=== PATIENT | female | born 1950 | race Caucasian/White ===

== ENCOUNTER 2021-09-26 08:56 | Day surgery (SDC) | payer MEDICARE, SELFPAY ==
[2021-09-26] VITALS (7 sets, daily range): BP systolic 172–190; BP diastolic 91–105; PULSE 67–77; RESP 16–18; TEMP 36.2–36.3; O2SAT 93–97; BMI 34.2
--- NOTE | 2021-09-26 09:07 | EKG12_ITS ---
Test Reason : PRE OP Blood Pressure : / mmHG Vent. Rate : 078 BPM Atrial Rate : 078 BPM P-R Int : 168 ms QRS Dur : 112 ms QT Int : 378 ms P-R-T Axes : 036 -08 005 degrees QTc Int : 430 ms Normal sinus rhythm Nonspecific T wave abnormality Poor R wave progression Abnormal ECG Confirmed by MANUEL WELSH, BARRY ([id number]), editor newspaper CARLOS JOLLEY ([id number]) on 10/13/2021 8:36:19 AM Referred By: MARGARITO Confirmed By:BARRY JACKSON MD
--- NOTE | 2021-09-26 09:33 | PCM.HP.STD ---
HPI - General HPI Narrative JAJA GARCIA, is a 71 F who presents for Botox injection 100 units for her overactive bladder. Urine culture preoperatively is negative. Informed consent was obtained. [facility], LAT[facility] Medical History (Updated 09/26/21 @ 09:[address] Natasha Bryan MD) Overactive bladder Urge incontinence Home Medications losartan 50 mg PO PRN PRN 09/26/21 [History Last Taken 09/23/21] Allergy/AdvReac Type Severity Reaction Status Date / Time tramadol Allergy Itching Verified 09/26/21 09:19 fruits Allergy Other Uncoded 09/26/21 09:19 ROS Constitutional Constitutional: Denies chills, fatigue or fever(s) Eyes Eyes: Denies change in vision ENT HEENT: Denies headache(s), nasal congestion, sinus pressure or sore throat Cardiovascular Cardiovascular: Denies abdominal pain, chest pain, dyspnea, nausea, tachypnea or vomiting Respiratory/Chest Respiratory/Chest: Denies chest congestion, chest tightness, cough, dyspnea, inability to speak, tachypnea or wheezing Gastrointestinal Gastrointestinal: Denies abdominal pain, nausea or vomiting Genitourinary Genitourinary: Reports urinary frequency, urinary incontinence and urinary urgency Musculoskeletal Musculoskeletal: Reports systems reviewed and no addt'l complaints, except as documented Integumentary Integumentary: Reports systems reviewed and no addt'l complaints, except as documented Neurologic Neurologic: Reports systems reviewed and no addt'l complaints, except as documented Psychiatric Psychiatric: Reports systems reviewed and no addt'l complaints, except as documented Endocrine Endocrinology: Reports systems reviewed and no addt'l complaints, except as documented Hematologic/Lymphatic Hematologic/Lymphatic: Reports systems reviewed and no addt'l complaints, except as documented Allergic/Immunologic Allergic/Immunologic: Reports systems reviewed and no addt'l complaints, except as documented Physical Exam Const alert, oriented x3 and no apparent distress General Appearance: cooperative, comfortable and well kempt HEENT normocephalic, head/scalp atraumatic, hearing grossly normal bilaterally, external ears normal, external nose normal and moist oral mucous membranes Mouth: lips normal and tongue normal Eyes General Eye: normal appearance of both eyes Neck supple General: trachea midline Lymph Lymphatic: no lymphedema noted Chest inspection of chest normal Chest: symmetrical chest wall rise Resp normal respiratory effort, normal air movement, no retractions and no use of accessory muscles Cardio regular rate and regular rhythm GI soft to palpation, non-tender and non-distended no CVA tenderness Back/Spine no CVA tenderness Extremity normal to inspection Skin no rashes or lesions noted, no wounds, skin turgor normal, no jaundice, no petechiae and no mottling Neuro oriented x3, CN's II-XII intact bilaterally and moves all extremities Psych mental status grossly normal, thought process normal, cooperative and affect normal Assessment & Plan Assessment/Plan (1) Overactive bladder: (2) Urge incontinence: PLAN: proceed with cystoscopy and botox injection 100 units. Procedure Criteria Type of Procedure Procedure Type: Elective Elective Risks - COVID COVID Risk Discussion: The surgeon/proceduralist and patient have discussed in detail the risk of exposure to and/or potential harm posed by the COVID-19 virus with having a surgery/procedure at this time versus the risk of delaying the surgery/procedure. It is not possible to know either the risk of delaying the surgery or procedure or chance of getting an infection with perfect accuracy, but a joint decision was made between the patient and the surgeon/proceduralist to proceed at this time with the scheduled surgery/procedure as indicated on the consent form.
[2021-09-26 09:40] LABS: Hematocrit 31.4 % (37-47); Hemoglobin 10.2 g/dL (12.0-15.0); Mean Corp Hgb Conc 32.5 g/dL (32-36); Mean Corpuscular Hgb 30.2 pg (27.0-32.0); Mean Corpuscular Volume 92.9 fL (81-99); Mean Platelet Vol. 9.7 fl (6.2-12.0); Platelet Count 278 K/mm3 (150-450); RBC Distribution Width CV 14.7 % (11.6-14.6); RBC Distribution Width SD 50.4 fl (35.1-43.9); Red Blood Count 3.38 M/mm3 (4.2-5.4); White Blood Count 5.7 K/mm3 (4.4-11.0)
[2021-09-26 09:53] LABS: Anion Gap 9 (5-15); BUN 8 mg/dL (7-18); BUN/Creat Ratio 12.2 RATIO (10-20); Calcium,Total 8.9 mg/dL (8.5-10.1); Chloride 106 mmol/L (98-107); Creatinine, Serum 0.65 mg/dL (0.55-1.02); EST Glomerular Filtration Rate 94 mL/min (>60); Est Glom Filt Rate - Afr Amer 114 mL/min (>60); Glucose 117 mg/dL (74-106); Potassium 3.6 mmol/L (3.5-5.1); Sodium Level 143 mmol/L (136-145)
[2021-09-26] MEDS: Lactated Ringers 1,000 ML 15 ML IV (10:10)
--- NOTE | 2021-09-26 10:31 | PCM.DC ---
Discharge Instructions Diet Discharge Diet: No restrictions Activity Discharge Activity: Return to Normal Activity Dressing / Incision Call your doctor if you observe: Fever of 101 or Higher, Inability to urinate, Inability to have a bowel movement and Uncontrolled pain Follow Up Care Please Follow Up With: Natasha Bryan MD When: call office for appt Test Results: Test results from this visit will be discussed in further detail at your follow-up appointment, if applicable. Discharge Plan Admission Attending Provider: Natasha Bryan Primary Care Provider: Lang Woody Discharge Orders/Prescriptions Prescriptions: New cephalexin [cephalexin] 500 MG capsule 500 mg PO Q12 3 Days Qty: 6 RF: 0 Continued losartan 50 mg tablet 50 mg PO PRN PRN (Reason: Hypertension) RF: 0 Referrals / Follow Up: Lang Woody MD [Primary Care Provider] - Disposition Disposition (needs filled in before D/C Order can be placed): Home, Self Care
--- NOTE | 2021-09-26 10:32 | PCM.OPRPT ---
Problems Associated Problem List Diagnoses (1) Urge incontinence: (2) Overactive bladder: Report of Operation Date of Procedure: 09/26/21 Pre-Operative Diagnosis: overactive bladder, urge incontinence Post-Operative Diagnosis: same Surgery/Procedure Performed:: cystoscopy with botox injection 100 units Surgeon: Natasha Bryan Type of Anesthesia: MAC Special Medications: Botox 100 units Description of Procedure: The patient is a 71-year-old female who previously underwent cystoscopy with 100 units of Botox injected and did very well for management of her urge incontinence. She now presents for repeat injection. Informed consent was obtained and her preoperative culture was negative. The patient was taken to the operating room and placed on the operating room table. Anesthesia monitored the head, neck, airway, IV access and vital signs throughout the case. Once anesthesia was appropriately ministered, the patient was placed into dorsal lithotomy position was prepped and draped in usual sterile fashion. The cystoscope was inserted through the urethra under direct visualization into the urinary bladder. There were no masses, foreign bodies or abnormal mucosa identified. Using the Miguel cystoscopic injection needle, 1/2 cc of Botox was systematically injected into areas of trabeculation in the patient's bladder. A total of 20 injections were made. At this time the patient's bladder was found to be without active hemorrhage. Her bladder was emptied and the cystoscope was removed. The patient was awakened and taken to the recovery room in good condition. There were no complications during this procedure. Grafts/Implants Used: none Complications none Admit VTE Documentation VTE Present on Admission: Yes VTE Mechan Device Prophylaxis: SCD's VTE Pharm Prophylaxis ordered?: No Reason prophylaxis not ordered:: Treatment Not Indicated
[2021-09-26] MEDS: Botulinum Toxin A 100 Units Vial IJ (10:47)
== END 2021-09-26 11:58 | disposition home or self-care (01) ==
LOC: SDC 09:01 → AC 09:02
PROVIDERS: PCP Family Medicine; Visit Provider Urology
PROC: 3E0K8GC Introduction of Other Therapeutic Substance into Genitourinary Tract, Via Natural or Artificial Opening Endoscopic (ICD-10-PCS; CPT 52287; principal; 2021-09-26 10:15)
DX: N39.46 Mixed incontinence (principal); N32.81 Overactive bladder; I10 Essential (primary) hypertension; Z79.899 Other long term (current) drug therapy; Z87.440 Personal history of urinary (tract) infections; Z87.891 Personal history of nicotine dependence
CPT/HCPCS: 00910; 52287; 80048; 85027; 93005; J7120; J0585